=== PATIENT | female | born 1985 | race Caucasian/White ===

== ENCOUNTER 2017-05-14 07:52 | Day surgery (SDC) | payer MEDICARE, OTHER ==
[2017-05-14 10:40] VITALS: BP 109/67; PULSE 83; RESP 18; TEMP 97.9; O2SAT 98
[2017-05-14 10:55] VITALS: BP 103/67; PULSE 85; RESP 18; O2SAT 99
[2017-05-14] MEDS ORDERED: LIDOCAINE HCL 1% 20 ML VIAL ONE (11:24)
[2017-05-14] MEDS ORDERED: ALBUMIN HUMAN 25% 50GM-W/12.5GM FOR 62.5GM IV ONE (11:30)
[2017-05-14] MEDS ORDERED: ALBUMIN HUMAN 25% 12.5GM-W/50GM FOR 62.5GM IV ONE (11:30)
[2017-05-14 12:23] LABS: PERITONEAL LYMPHS 0 %; PERITONEAL POLYS(SEGS) 0 %; PERITONEAL WBC 0 /MM3 (0-10)
--- NOTE | 2017-05-14 13:55 | RADRPT ---
EXAM DATE/TIME: 05/14/2017 08:41 [facility] COMPARISON: No previous studies available for comparison. INDICATIONS : Ascites. MEDICAL HISTORY : Liver disease. Liver necrosis. Seizures. Hydrocephalus. SURGICAL HISTORY : Paracentesis. Ventriculo-peritoneal CSF shunt. Liver bx. ENCOUNTER: Initial ACUITY: 1 day PAIN SCORE: 0/10 LOCATION: Right lower quadrant FLUID: Total volume of 9,100 cc of clear, yellow fluid was removed. Fluid was sent to lab for ordered studies. Post procedure scanning reveals no hematoma or other complication. TECHNIQUE: 1. Ultrasound guidance for abdominal paracentesis. 2. Paracentesis. The risks, benefits, and alternatives to ultrasound guided paracentesis were explained to the patient in detail including the risk of bleeding and infection. Written and verbal informed consent was obt ained. With the patient on the ultrasound table, ultrasound imaging was used to select the most appropriate approach for paracentesis. Overlying skin was prepped and draped in the usual sterile fashion and wi th a local anesthetic, a dermatotomy was made with an 11 blade scalpel. A 6 Sinhala Pbs-U-sbmnxoxr ca theter was introduced into the peritoneal cavity and fluid was collected. The patient tolerated the procedure well and left the ultrasound suite in stable condition. CONCLUSION: Uncomplicated ultrasound guided paracentesis. Royal Mcconnell MD on May 14, 2017 at 13:53 Board Certified Radiologist. This report was verified electronically.
== END 2017-05-14 12:40 | disposition home or self-care (01) ==
LOC: HRAD 07:52 → HRIP 07:54 → HRAD 12:40
PROVIDERS: ATTEND Internal Medicine Gastroenterology
DX: R18.8 Other ascites (principal)
CPT/HCPCS: 49083; 82040; 82042; 87070; 87205; 89051; 96365; 96366; C1729; P9047

== ENCOUNTER 2017-07-15 07:25 | Day surgery (SDC) | payer MEDICARE, MEDICAID ==
[2017-07-15 08:15] VITALS: BP 109/75; PULSE 103; RESP 14; TEMP 99.5; O2SAT 95
--- NOTE | 2017-07-15 10:09 | PD.RAD ---
Post US Procedure Prog Note Pre Procedure Diagnosis: (1) Ascites Post Procedure Diagnosis: (1) Ascites Procedure Date: Jul 15, 2017 Supervising Radiologist: Thomas Carranza Proceduralist/Assist: Monica Dimas RDMS Anesthesia: Local Plan of Activity Patient to Unit: ROPU See PACS Report for procedural detail/treatment Drainage Procedure Procedure 1 Imaging Guidance: Ultrasound Side: Right Procedure Type: Paracentesis Procedure: Removal Drainage: Suction Fluid Description: Clear, Yellow Thomas Carranza MD Jul 15, 2017 10:09
[2017-07-15 11:15] VITALS: BP 106/68; PULSE 85; RESP 18; TEMP 98.7; O2SAT 97
[2017-07-15 11:30] VITALS: BP 102/68; PULSE 92; RESP 18; O2SAT 98
[2017-07-15] MEDS ORDERED: ALBUMIN HUMAN 25% 50GM-W/12.5GM FOR 62.5GM IV ONE (11:30)
[2017-07-15] MEDS ORDERED: ALBUMIN HUMAN 25% 12.5GM-W/50GM FOR 62.5GM IV ONE (11:30)
--- NOTE | 2017-07-15 14:02 | RADRPT ---
EXAM DATE/TIME: 07/15/2017 08:07 [facility] COMPARISON: US GUIDED ABD PARACENTESIS, May 14, 2017, 8:41. INDICATIONS : Ascites. MEDICAL HISTORY : Liver disease. Liver necrosis. Seizures. Hydrocephalus. SURGICAL HISTORY : Paracentesis. Ventriculo-peritoneal CSF shunt. Liver bx. ENCOUNTER: Subsequent ACUITY: 1 day PAIN SCORE: 0/10 LOCATION: Right FLUID: Total volume of 12,500 cc of clear, yellow fluid was removed. Fluid was discarded. Paracentesis was therapeutic only. Post procedure scanning reveals no hematoma or other complication. TECHNIQUE: 1. Ultrasound guidance for abdominal paracentesis. 2. Paracentesis. The risks, benefits, and alternatives to ultrasound guided paracentesis were explained to the patient in detail including the risk of bleeding and infection. Written and verbal informed consent was obt ained. With the patient on the ultrasound table, ultrasound imaging was used to select the most appropriate approach for paracentesis. Overlying skin was prepped and draped in the usual sterile fashion and wi th a local anesthetic, a dermatotomy was made with an 11 blade scalpel. A 6 [place]an Yju-L-pjqrtbxo ca theter was introduced into the peritoneal cavity and fluid was collected. The patient tolerated the procedure well and left the ultrasound suite in stable condition. CONCLUSION: Uncomplicated ultrasound guided paracentesis. Thomas Carranza MD on July 15, 2017 at 13:59 Board Certified Radiologist. This report was verified electronically.
== END 2017-07-15 12:30 | disposition home or self-care (01) ==
LOC: HRAD 07:25 → HRIP 07:25 → HRAD 12:30
PROVIDERS: ATTEND Internal Medicine Gastroenterology
DX: R18.8 Other ascites (principal)
CPT/HCPCS: 49083; C1729

== ENCOUNTER 2017-08-09 07:51 | Day surgery (SDC) | payer MEDICARE, MEDICAID ==
[2017-08-09 08:16] VITALS: BP 117/71; PULSE 67; RESP 14; TEMP 97; O2SAT 97
[2017-08-09 09:05] VITALS: BP 105/57; PULSE 63; RESP 18; TEMP 98.4; O2SAT 99
[2017-08-09] MEDS ORDERED: LIDOCAINE HCL 1% 20 ML VIAL ONE (09:05)
[2017-08-09 09:20] VITALS: BP 111/69; PULSE 78; RESP 18; O2SAT 98
--- NOTE | 2017-08-09 15:47 | RADRPT ---
EXAM DATE/TIME: 08/09/2017 08:12 [facility] COMPARISON: No previous studies available for comparison. INDICATIONS : Ascites. MEDICAL HISTORY : Liver disease. Liver necrosis. Seizures. Hydrocephalus. SURGICAL HISTORY : Paracentesis. Ventriculo-peritoneal CSF shunt. Liver biopsy. ENCOUNTER: Subsequent ACUITY: 3 weeks PAIN SCORE: 5/10 LOCATION: Right lower quadrant FLUID: Total volume of 4400 cc of clear, yellow fluid was removed. Fluid was discarded. Paracentesis was therapeutic only. Post procedure scanning reveals no hematoma or other complication. TECHNIQUE: 1. Ultrasound guidance for abdominal paracentesis. 2. Paracentesis. The risks, benefits, and alternatives to ultrasound guided paracentesis were explained to the patient in detail including the risk of bleeding and infection. Written and verbal informed consent was obt ained. With the patient on the ultrasound table, ultrasound imaging was used to select the most appropriate approach for paracentesis. Overlying skin was prepped and draped in the usual sterile fashion and wi th a local anesthetic, a dermatotomy was made with an 11 blade scalpel. A 6 [place] Afy-N-iexzzyyj ca theter was introduced into the peritoneal cavity and fluid was collected. The patient tolerated the procedure well and left the ultrasound suite in stable condition. CONCLUSION: Uncomplicated ultrasound guided paracentesis. Donnie Feng MD on August 09, 2017 at 15:44 Board Certified Radiologist. This report was verified electronically.
== END 2017-08-09 09:25 | disposition home or self-care (01) ==
LOC: HRAD 07:51 → HRIP 07:54 → HRAD 09:25
PROVIDERS: ATTEND Internal Medicine Gastroenterology
DX: R18.8 Other ascites (principal); K72.90 Hepatic failure, unspecified without coma; G91.9 Hydrocephalus, unspecified; R56.9 Unspecified convulsions; Z98.2 Presence of cerebrospinal fluid drainage device
CPT/HCPCS: 49083; C1729

== ENCOUNTER 2017-09-16 07:56 | Day surgery (SDC) | payer MEDICARE, MEDICAID ==
[~2017-09-16] VITALS: Ht 165.1 cm; Wt 61.4 kg
[2017-09-16] VITALS (8 sets, daily range): BP systolic 91–147; BP diastolic 46–96; PULSE 67–115; RESP 18–20; TEMP 98.2–98.4; O2SAT 93–98
[2017-09-16] MEDS ORDERED: PHEN-524 PO (08:09)
[2017-09-16 08:34] LABS: AUTOMATED NEUTROPHIL # 4.2 TH/MM3 (1.8-7.7); BASOPHIL % 0.6 % (0.0-2.0); EOSINOPHIL # 0.2 TH/MM3 (0-0.4); EOSINOPHIL % 2.1 % (0.0-4.0); HEMATOCRIT 37.5 % (35.0-46.0); HEMOGLOBIN 12.3 GM/DL (11.6-15.3); LYMPH % 28.9 % (9.0-44.0); LYMPHOCYTE # 2.2 TH/MM3 (1.0-4.8); MEAN CELL VOLUME 81.1 FL (80.0-100.0); MEAN CORPUSCULAR HEMOGLOBIN 26.5 PG (27.0-34.0); MEAN CORPUSCULAR HGB CONC 32.7 % (32.0-36.0); MEAN PLATELET VOLUME 8.5 FL (7.0-11.0); MONO % 12.9 % (0.0-8.0); NEUT % 55.5 % (16.0-70.0); PLATELET COUNT 298 TH/MM3 (150-450); RED BLOOD COUNT 4.63 MIL/MM3 (4.00-5.30); RED CELL DISTRIBUTION WIDTH 17.2 % (11.6-17.2); WHITE BLOOD COUNT 7.5 TH/MM3 (4.0-11.0)
[2017-09-16] MEDS ORDERED: MIDAZOLAM HCL 2 MG/2 ML VIAL ONE (08:44)
[2017-09-16] MEDS ORDERED: SODIUM CHLOR 0.9% 1000 ML IV SCH (08:45)
[2017-09-16] MEDS ORDERED: LIDOCAINE HCL 1% 20 ML VIAL ONE (10:41)
--- NOTE | 2017-09-16 14:29 | RADRPT ---
EXAM DATE/TIME: 09/16/2017 09:08 [facility] COMPARISON: No previous studies available for comparison. INDICATIONS : Liver disease SEDATION TIME: 30 minutes BIOPSY SITE: Liver MEDICATION(S): 1.) 2 mg midazolam (Versed) IV 2.) 125 mcg fentanyl (Sublimaze) IV DEVICE(S): 1.) 18 gauge Temno core biopsy needle MEDICAL HISTORY : cystic fibrosis SURGICAL HISTORY : None. ENCOUNTER: Initial ACUITY: 1 day PAIN SCORE: 0/10 LOCATION: Right upper quadrant A total of one core specimen(s) were obtained and sent to the laboratory for pathologic evaluation. PROCEDURE: 1. CT guided liver biopsy. Prior to the procedure informed consent was obtained. Any appropriate prior imaging studies were rev iewed. Using automated exposure control and adjustment of the mA and/or kV according to patient size, radiat ion dose was kept as low as reasonably achievable to obtain optimal diagnostic quality images. DICOM format image data is available electronically for review and comparison. The site was prepped in a sterile fashion. Full sterile technique was used, including cap, mask, asif rile gloves and gown and a large sterile sheet. Hand hygiene and 2% chlorhexidine and/or betadine/al cohol prep was utilized per protocol for cutaneous antisepsis. The skin and subcutaneous tissues wer e infiltrated with local anesthetic solution. With CT guidance the previously identified target was localized. Biopsy was performed using the presc ribed needle as above. Adequate hemostasis was obtained with compression at the puncture site. Follow-up CT scan reveals no hemorrhage. The patient tolerated the procedure well and there were no complications. The patient was returned to the Radiology Outpatient Unit in stable condition. CONCLUSION: Uncomplicated CT guided biopsy. Óscar Wick MD on September 16, 2017 at 14:27 Board Certified Radiologist. This report was verified electronically.
== END 2017-09-16 13:35 | disposition home or self-care (01) ==
LOC: HRAD 07:56 → HRIP 07:59 → HRAD 13:35
PROVIDERS: ATTEND Internal Medicine Gastroenterology
DX: K76.9 Liver disease, unspecified (principal); E84.9 Cystic fibrosis, unspecified
CPT/HCPCS: 47000; 77012; 85025; 85610; 85730; 88307; 88313; J2250; J3010; J7030

== ENCOUNTER 2017-09-24 08:02 | Day surgery (SDC) | payer MEDICARE, MEDICAID ==
[~2017-09-24 08:02] MED LIST: PHEN-524 PO
[2017-09-24 09:55] VITALS: BP 106/62; PULSE 90; TEMP 98.6; O2SAT 100
[2017-09-24] MEDS ORDERED: ALBUMIN HUMAN 25% 50 GM IV ONE (10:30)
[2017-09-24 11:15] VITALS: BP 100/61; PULSE 103; RESP 18; O2SAT 99
[2017-09-24] MEDS ORDERED: LIDOCAINE HCL 1% 20 ML VIAL ONE (12:01)
--- NOTE | 2017-09-24 12:01 | RADRPT ---
EXAM DATE/TIME: 09/24/2017 08:26 [facility] COMPARISON: EXTERNAL COMPARISON: US GUIDED ABD PARACENTESIS, August 09, 2017, 8:12. [facility], CT ABDOMEN & PELVIS W/ & W /O CONTRAST , Aug 02 2017. INDICATIONS : Ascites. MEDICAL HISTORY : Liver disease. Liver necrosis. Seizures. Hydrcephalus. Ascites. SURGICAL HISTORY : Paracentesis. Liver biopsy. Ventriculo-peritoneal CSF shunt. ENCOUNTER: Subsequent ACUITY: 2 weeks PAIN SCORE: 0/10 LOCATION: Right lower quadrant FLUID: Total volume of 8200 cc of clear, yellowperitoneal fluid was removed. Fluid was discarded. Paracentesis was therapeutic only. Post procedure scanning reveals no hematoma or other complication. TECHNIQUE: 1. Ultrasound guidance for abdominal paracentesis. 2. Paracentesis. The risks, benefits, and alternatives to ultrasound guided paracentesis were explained to the patient in detail including the risk of bleeding and infection. Written and verbal informed consent was obt ained. With the patient on the ultrasound table, ultrasound imaging was used to select the most appropriate approach for paracentesis. Overlying skin was prepped and draped in the usual sterile fashion and wi th a local anesthetic, a dermatotomy was made with an 11 blade scalpel. A 6 [place] Xcg-O-eqbscdmg ca theter was introduced into the peritoneal cavity and fluid was collected. The patient tolerated the procedure well and left the ultrasound suite in stable condition. CONCLUSION: Uncomplicated ultrasound guided paracentesis. Delfino Marino MD on September 24, 2017 at 11:53 Board Certified Radiologist. This report was verified electronically.
== END 2017-09-24 11:20 | disposition home or self-care (01) ==
LOC: HRAD 08:02 → HRIP 08:03 → HRAD 11:20
PROVIDERS: ATTEND Internal Medicine Gastroenterology
DX: R18.8 Other ascites (principal)
CPT/HCPCS: 49083; 96365; C1729; P9047

== ENCOUNTER 2017-10-15 07:51 | Day surgery (SDC) | payer MEDICARE, MEDICAID ==
[2017-10-15 08:06] VITALS: BP 102/67; PULSE 66; RESP 16; TEMP 98.1; O2SAT 100
[2017-10-15] MEDS ORDERED: ALBUMIN 25% INJ 0 ML IV ONE (09:00)
[2017-10-15] MEDS ORDERED: LIDOCAINE HCL 1% PF 30 ML VIAL ONE (09:13)
[2017-10-15 09:15] VITALS: BP 104/67; PULSE 72; RESP 18; TEMP 97.7; O2SAT 97
[2017-10-15 09:31] VITALS: BP 110/71; PULSE 64; RESP 18; O2SAT 95
--- NOTE | 2017-10-15 09:42 | PD.RAD ---
Post US Procedure Prog Note Pre Procedure Diagnosis: (1) Ascites Post Procedure Diagnosis: (1) Ascites Procedure Date: Oct 15, 2017 Supervising Radiologist: Gildardo Lerma Estimated blood loss: none Anesthesia: Conscious Sedation Plan of Activity Patient to Unit: ROPU Patient Condition: Good See PACS Report for procedural detail/treatment Drainage Procedure Procedure 1 Imaging Guidance: Ultrasound Side: Right Procedure Type: Paracentesis Drainage: Suction Fluid Removal (CCs): 4200 Fluid Description: Clear, Yellow Plan to ROPU then discharge. Gildardo Lerma MD Oct 15, 2017 09:42
--- NOTE | 2017-10-15 09:48 | RADRPT ---
EXAM DATE/TIME: 10/15/2017 08:13 [facility] COMPARISON: US GUIDED ABD PARACENTESIS, September 24, 2017, 8:26. INDICATIONS : Ascites. MEDICAL HISTORY : Liver necrosis. Liver disease. Seizures. Hydrocephalus. SURGICAL HISTORY : Shunt. ENCOUNTER: Subsequent ACUITY: 3 weeks PAIN SCORE: 3/10 LOCATION: Right lower quadrant FLUID: Total volume of 4200 cc of clear, yellow fluid was removed. Fluid was discarded. Paracentesis was therapeutic only. Post procedure scanning reveals no hematoma or other complication. TECHNIQUE: 1. Ultrasound guidance for abdominal paracentesis. 2. Paracentesis. The risks, benefits, and alternatives to ultrasound guided paracentesis were explained to the patient in detail including the risk of bleeding and infection. Written and verbal informed consent was obt ained. With the patient on the ultrasound table, ultrasound imaging was used to select the most appropriate approach for paracentesis. Overlying skin was prepped and draped in the usual sterile fashion and wi th a local anesthetic, a dermatotomy was made with an 11 blade scalpel. A 6 Korean Owk-H-tokpzcyy ca theter was introduced into the peritoneal cavity and fluid was collected. The patient tolerated the procedure well and left the ultrasound suite in stable condition. CONCLUSION: Uncomplicated ultrasound guided paracentesis. Gildardo Lerma MD on October 15, 2017 at 9:40 Board Certified Radiologist. This report was verified electronically.
== END 2017-10-15 09:40 | disposition home or self-care (01) ==
LOC: HRAD 07:51 → HRIP 07:53 → HRAD 09:40
PROVIDERS: ATTEND Internal Medicine Gastroenterology
DX: R18.8 Other ascites (principal); K76.9 Liver disease, unspecified; G91.9 Hydrocephalus, unspecified
CPT/HCPCS: 49083; C1729

== ENCOUNTER 2017-11-27 07:52 | Day surgery (SDC) | payer MEDICARE, MEDICAID ==
[2017-11-27 08:15] VITALS: BP 128/73; PULSE 64; RESP 16; TEMP 99.7; O2SAT 100
--- NOTE | 2017-11-27 08:49 | PD.RAD ---
Post US Procedure Prog Note Pre Procedure Diagnosis: (1) Ascites Post Procedure Diagnosis: (1) Ascites Procedure Date: November 27, 2017 Supervising Radiologist: Thomas Carranza Anesthesia: Local Plan of Activity Patient to Unit: ROPU Patient Condition: Good See PACS Report for procedural detail/treatment Drainage Procedure Procedure 1 Imaging Guidance: Ultrasound Side: Right Procedure Type: Paracentesis Drainage: Suction Fluid Description: Clear, Yellow Thomas Carranza MD November 27, 2017 08:49
[2017-11-27 09:40] VITALS: BP 108/67; PULSE 74; RESP 20; TEMP 97.9; O2SAT 100
--- NOTE | 2017-11-27 09:55 | RADRPT ---
EXAM DATE: 11/27/2017 9:43 AM EDT AGE/SEX: 32 years / Female INDICATIONS: Ascites. CLINICAL DATA: This is the patient's subsequent encounter. Patient reports that signs and symptoms h ave been present for 1 month and indicates a pain score of 2/10. MEDICAL/SURGICAL HISTORY: Carcinoma, ovarian. Seizures. Ascites. . Paracentesis. Shunt placem ent. COMPARISON: . FLUID: Total volume of 7,000 cc of clear, yellow fluid was removed. Fluid was discarded. Paracentesis was th erapeutic only. . . TECHNIQUE: Ultrasound guidance for abdominal paracentesis. Paracentesis. The risks, benefits, and alternatives to ultrasound guided paracentesis were explained to the patient in detail including the risk of bleeding and infection. Written and verbal informed consent was obt ained. With the patient on the ultrasound table, ultrasound imaging was used to select the most appropriate approach for paracentesis. Overlying skin was prepped and draped in the usual sterile fashion and wi th a local anesthetic, a dermatotomy was made with an 11 blade scalpel. A 6 Maltese Eql-V-fupejutg ca theter was introduced into the peritoneal cavity and fluid was collected. Post procedure scanning reveals no hematoma or other complication. The patient tolerated the procedu re well and left the ultrasound suite in stable condition. CONCLUSION: Uncomplicated ultrasound-guided paracentesis. Electronically signed by: Thomas Carranza MD 11/27/2017 9:54 AM EDT
[2017-11-27] MEDS: ALBUMIN 25% INJ 200 ML IV SCH (09:59)
[2017-11-27 10:15] VITALS: BP 110/65; PULSE 78; RESP 20; O2SAT 99
[2017-11-27] MEDS ORDERED: LIDOCAINE HCL 1% 20 ML VIAL ONE (10:58)
== END 2017-11-27 10:27 | disposition home or self-care (01) ==
LOC: HRAD 07:52 → HRIP 07:53 → HRAD 10:27
PROVIDERS: ATTEND Internal Medicine Gastroenterology
DX: R18.8 Other ascites (principal)
CPT/HCPCS: 49083; 96365; C1729; P9047

== ENCOUNTER 2018-01-01 07:41 | Day surgery (SDC) | payer MEDICARE, MEDICAID ==
[2018-01-01 08:04] LABS: AUTOMATED NEUTROPHIL # 4.1 TH/MM3 (1.8-7.7); BASOPHIL # 0.1 TH/MM3 (0-0.2); BASOPHIL % 0.8 % (0.0-2.0); EOSINOPHIL # 0.1 TH/MM3 (0-0.4); EOSINOPHIL % 1.7 % (0.0-4.0); HEMATOCRIT 38.9 % (35.0-46.0); HEMOGLOBIN 12.6 GM/DL (11.6-15.3); LYMPH % 32.6 % (9.0-44.0); LYMPHOCYTE # 2.4 TH/MM3 (1.0-4.8); MEAN CELL VOLUME 81.7 FL (80.0-100.0); MEAN CORPUSCULAR HEMOGLOBIN 26.4 PG (27.0-34.0); MEAN CORPUSCULAR HGB CONC 32.4 % (32.0-36.0); MEAN PLATELET VOLUME 8.9 FL (7.0-11.0); MONO % 9.3 % (0.0-8.0); MONOCYTE # 0.7 TH/MM3 (0-0.9); NEUT % 55.6 % (16.0-70.0); PLATELET COUNT 286 TH/MM3 (150-450); RED BLOOD COUNT 4.77 MIL/MM3 (4.00-5.30); RED CELL DISTRIBUTION WIDTH 16.7 % (11.6-17.2); WHITE BLOOD COUNT 7.4 TH/MM3 (4.0-11.0)
[2018-01-01 08:11] LABS: INTERNATIONAL NORMALIZED RATIO 1.1 RATIO; PROTHROMBIN TIME - PATIENT 10.7 SEC (9.8-11.6)
[2018-01-01 08:43] VITALS: BP 118/73; PULSE 78; RESP 16; TEMP 97.8
[2018-01-01 10:40] VITALS: BP 110/66; PULSE 76; RESP 18; TEMP 97.6; O2SAT 100
[2018-01-01 10:50] VITALS: BP 105/64; PULSE 78; RESP 16; O2SAT 99
[2018-01-01] MEDS ORDERED: LIDOCAINE HCL 1% PF 30 ML VIAL ONE (11:10)
[2018-01-01] MEDS ORDERED: ALBUMIN 25% INJ 200 ML IV ONE (11:15)
--- NOTE | 2018-01-01 11:18 | RADRPT ---
EXAM DATE: 01/01/2018 10:31 AM EDT AGE/SEX: 32 years / Female INDICATIONS: Ascites. CLINICAL DATA: This is the patient's sequela encounter. Patient reports that signs and symptoms have been present for 1 month and indicates a pain score of 3/10. MEDICAL/SURGICAL HISTORY: . Seizures. Scoliosis. . Neurologic surgery, shunt. Paracentesis. COMPARISON: [facility] [place], US GUIDED ABD PARACENTESIS, 11/27/2017. . FLUID: Total volume of 7,000 cc of clear, yellow fluid was removed. Fluid was sent to lab for ordered studie s. . . TECHNIQUE: Ultrasound guidance for abdominal paracentesis. Paracentesis. The risks, benefits, and alternatives to ultrasound guided paracentesis were explained to the patient in detail including the risk of bleeding and infection. Written and verbal informed consent was obt ained. FINDINGS: With the patient on the ultrasound table, ultrasound imaging was used to select the most appropriate approach for paracentesis. Overlying skin was prepped and draped in the usual sterile fashion and wi th a local anesthetic, a dermatotomy was made with an 11 blade scalpel. A 6 [place] ca theter was introduced into the peritoneal cavity and fluid was collected. Post procedure scanning reveals no hematoma or other complication. The patient tolerated the procedu re well and left the ultrasound suite in stable condition. CONCLUSION: Ultrasound-guided abdominal paracentesis as above. Electronically signed by: Delfino Marino MD 01/01/2018 11:17 AM EDT
[2018-01-01 11:39] LABS: TOTAL PROTEIN,PERITONEAL FLUID 0.7 GM/DL
[2018-01-01 13:13] LABS: PERITONEAL LYMPHS 22 %; PERITONEAL MONOS 30 %; PERITONEAL POLYS(SEGS) 8 %; PERITONEAL RBC 155 /MM3 (0-0)
[2018-01-01 13:14] LABS: PERITONEAL EOS 10 %; PERITONEAL HISTIOCYTES 26 %; PERITONEAL MESOTHELIAL 4 %
[2018-01-02 16:15] LABS: AMYLASE BODY FLUID 15 U/L; AMYLASE BODY FLUID TYPE PERITONEAL
== END 2018-01-01 11:10 | disposition home or self-care (01) ==
LOC: HRAD 07:41 → HRIP 07:49 → HRAD 11:10
PROVIDERS: ATTEND Internal Medicine Gastroenterology
DX: R18.8 Other ascites (principal); K76.9 Liver disease, unspecified; K72.90 Hepatic failure, unspecified without coma; G91.9 Hydrocephalus, unspecified; K76.6 Portal hypertension; R56.9 Unspecified convulsions; M41.9 Scoliosis, unspecified; Z98.2 Presence of cerebrospinal fluid drainage device; Z01.818 Encounter for other preprocedural examination
CPT/HCPCS: 36415; 49083; 82042; 82150; 82945; 83615; 84157; 85025; 85610; 85730; 87070; 87205; 88112; 89051; C1729